=== PATIENT | female | born 1945 | race Two or more races ===

== ENCOUNTER 2024-08-20 11:28 | Emergency (ER) | payer OTHER ==
[~2024-08-20] VITALS: Ht 162.6 cm; Wt 71.7 kg
[2024-08-20 11:44] VITALS: BP 172/78; O2SAT 97
[2024-08-20] MEDS ORDERED: KETOROLAC TROMETHAMINE 30 MG VIAL IM ONE (12:30)
[2024-08-20] MEDS ORDERED: KETOROLAC TROMETHAMINE 30 MG VIAL ONE (12:41)
== END 2024-08-20 15:23 | disposition home or self-care (01) ==
LOC: ER 12:28
DX: S13.8XXA Sprain of joints and ligaments of other parts of neck, initial encounter (principal); W18.39XA Other fall on same level, initial encounter; Y93.89 Activity, other specified; Y92.018 Other place in single-family (private) house as the place of occurrence of the external cause; I69.354 Hemiplegia and hemiparesis following cerebral infarction affecting left non-dominant side; I10 Essential (primary) hypertension; E11.9 Type 2 diabetes mellitus without complications
CPT/HCPCS: 72040; 96372; 99283; J1885